=== PATIENT | female | born 1990 | race Caucasian/White ===

== ENCOUNTER 2017-08-26 09:50 | Emergency (ER) | payer MEDICARE, MEDICAID ==
[2017-08-26 10:00] VITALS: BP 143/101
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
[2017-08-26] MEDS ORDERED: Bacitracin Oint 1 GM U/D Packet TOP ONE (14:31)
== END 2017-08-26 15:25 ==
LOC: JP.ED 09:50
DX: T14.91XA Suicide attempt, initial encounter (principal); F32.9 Major depressive disorder, single episode, unspecified; F41.9 Anxiety disorder, unspecified; F98.8 Other specified behavioral and emotional disorders with onset usually occurring in childhood and adolescence; Z79.899 Other long term (current) drug therapy; X83.8XXA Intentional self-harm by other specified means, initial encounter
CPT/HCPCS: 36415; 80053; 80305; 81001; 81025; 84443; 85025; 99285; G0480

== ENCOUNTER 2019-05-01 15:52 | Emergency (ER) | payer MEDICARE, MEDICAID ==
[2019-05-01] MEDS ORDERED: Albuterol 0.083% 2.5 MG/3 ML Neb Soln NEB ONE (17:06)
[2019-05-01] MEDS ORDERED: LORazepam 1 MG Tab PO ONE (17:06)
--- NOTE | 2019-05-01 17:08 | EDM.PDOCBH ---
ED HPI GENERAL MEDICAL PROBLEM - General Chief Complaint: Behavioral/Psych Stated Complaint: CHEST PAIN Time Seen by Provider: 05/01/19 16:56 Source of Information: Reports: Patient, Family, RN Notes Reviewed History Limitations: Reports: No Limitations - History of Present Illness INITIAL COMMENTS - FREE TEXT/NARRATIVE: 28-year-old female presents emergency department with a complaint of cannot breathe difficulty swallowing. She was evaluated in urgent care yesterday rapid strep and influenza were both negative she states approximately 1 hour prior developed difficulties where she could not breathe could not talk came into the emergency department for further evaluation Throat Pain Score (Numeric/FACES): 8 - Related Data Allergies Allergy/AdvReac Type Severity Reaction Status Date / Time No Known Allergies Allergy Verified 05/01/19 16:07 Home Meds: Home Meds Docusate Sodium [Colace] 200 mg PO QAM 08/19/15 [History] L.acidoph,Paracasei, B.lactis [Probiotic] 1 each PO QAM 08/19/15 [History] QUEtiapine [SEROquel] 50 mg PO BID 08/19/15 [History] Sertraline HCl 150 mg PO DAILY 08/19/15 [History] atoMOXetine HCl [Strattera] 40 mg PO QAM 08/19/15 [History] hydrOXYzine HCL [Atarax] 50 mg PO BID 08/19/15 [History] traZODone 100 mg PO BEDTIME 08/19/15 [History] *A Control Shot 1 injection IM ASDIRECTED 11/02/15 [History] Vitamin B Complex [B Complex] 1 tab PO DAILY 01/06/16 [History] ALPRAZolam [Xanax] 0.25 mg PO QID PRN 08/26/17 [History] Hyoscyamine Sulfate [Levsin-Sl] 0.125 mg SL Q4HR PRN 08/26/17 [History] raNITIdine HCl [Ranitidine HCl] 150 mg PO BID 08/26/17 [History] LORazepam [Ativan] 1 mg PO Q8H PRN #10 tab 05/01/19 [Rx] Past Medical History Cardiovascular History: Reports: Heart Failure Respiratory History: Reports: Asthma 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 History: Reports: Chronic Constipation 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: Musculoskeletal History: Reports: Back Pain, Chronic, Fracture, Osteoarthritis, Osteoporosis Neurological History: Reports: Headaches, Chronic, Head Trauma, Seizure Psychiatric History: Reports: ADD, Anxiety, Depression, Psych Hospitalization(s) , Suicide Attempt, Suicidal Ideation, Other (See Below) Other Psychiatric History: ELLY Hematologic History: Reports: Blood Transfusion(s), Other (See Below) 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 - Past Surgical History Female Surgical History: Reports: Hysterectomy Musculoskeletal Surgical History: Reports: Other (See Below) Social & Family History - Tobacco Use Smoking Status *Q: Never Smoker Second Hand Smoke Exposure: No - Caffeine Use Caffeine Use: Reports: None - Recreational Drug Use Recreational Drug Use: Yes ED ROS GENERAL - Review of Systems Review Of Systems: See Below Constitutional: Reports: No Symptoms HEENT: Reports: Throat Pain, Throat Swelling Respiratory: Reports: Shortness of Breath, Cough Cardiovascular: Reports: No Symptoms GI/Abdominal: Reports: No Symptoms ED EXAM, BEHAVIORAL HEALTH - Physical Exam Exam: See Below Exam Limited By: No Limitations General Appearance: Alert, WD/WN, No Apparent Distress Ears: Normal External Exam, Normal Canal, Hearing Grossly Normal, Normal TMs Nose: Normal Inspection, Normal Mucosa, No Blood Throat/Mouth: Normal Inspection, Normal Lips, Normal Teeth, Normal Gums, No Airway Compromise, Inflammation, Other (No edema noted in the posterior pharynx she has difficulty speaking due to pain) Head: Atraumatic, Normocephalic Neck: Normal Inspection, Supple, Non-Tender, Full Range of Motion Respiratory/Chest: No Respiratory Distress, Lungs Clear, Normal Breath Sounds, No Accessory Muscle Use, Chest Non-Tender Cardiovascular: Regular Rate, Rhythm, No Murmur COURSE, BEHAVIORAL HEALTH COMP - Course Vital Signs: Last Vital Signs Temp 97.3 F 05/01/19 16:32 Pulse 131 H 05/01/19 17:36 Resp 24 H 05/01/19 16:32 BP 149/86 H 05/01/19 17:36 Pulse Ox 98 05/01/19 17:36 Orders, Labs, Meds: Active Orders 24 hr Category Date Time Status RT Aerosol Therapy [RC] ASDIRECTED Care 05/01/19 17:06 Active Medications Discontinued Medications Generic Name Dose Route Start Last Admin Trade Name Freq PRN Reason Stop Dose Admin Albuterol 2.5 mg 05/01/19 17:06 05/01/19 17:12 Proventil Neb Soln NEB 05/01/19 17:07 2.5 mg ONETIME ONE Administration Dexamethasone 8 mg 05/01/19 17:55 Dexamethasone PO 05/01/19 17:56 ONETIME ONE Lorazepam 1 mg 05/01/19 17:06 05/01/19 17:12 Ativan PO 05/01/19 17:07 1 mg ONETIME ONE Administration Departure - Departure Time of Disposition: 17:58 Disposition: Home, Self-Care 01 Condition: Fair Clinical Impression: Panic attack - Discharge Information Prescriptions: LORazepam [Ativan] 1 mg PO Q8H PRN #10 tab PRN Reason: Anxiety Instructions: Panic Attack Referrals: PCP,None [Primary Care Provider] - Forms: ED Department Discharge Additional Instructions: Use the Ativan as needed with the difficulty breathing, please followup with your primary care provider in 3-5 days if not better, please call return to the emergency department with worsening of symptoms. Your medications have been faxed to [facility] Sepsis Event Note - Evaluation Sepsis Screening Result: No Definite Risk - Focused Exam Vital Signs: Vital Signs Temp Pulse Resp BP Pulse Ox 05/01/19 17:36 131 H 149/86 H 98 05/01/19 16:56 102 H 120/78 98 05/01/19 16:39 110 H 119/77 99 05/01/19 16:32 97.3 F 122 H 24 H 134/77 96 05/01/19 15:59 97.3 F 122 H 24 H 134/77 96 Date Exam was Performed: 05/01/19 Time Exam was Performed: 17:57 - My Orders Last 24 Hours: My Active Orders 05/01/19 17:06 RT Aerosol Therapy [RC] ASDIRECTED - Assessment/Plan Last 24 Hours: My Active Orders 05/01/19 17:06 RT Aerosol Therapy [RC] ASDIRECTED Plan: Assessment Acuity = acute Site and laterality = panic attack Etiology = underlying generalized anxiety disorder Manifestations = none Location of injury = Home Lab values = none Plan Good improvement with Ativan provided in the emergency department, I am suspicious she has underlying laryngitis which may have contributed to throat pain which then may have contributed to not being able to breathe and led to the panic attack. She was given dexamethasone elixir one-time dose prescription written for Ativan 1 mg p.o. every 8 hours PRN total #10 faxed to [facility] follow-up primary care 3 to 5 days if not better This note was dictated using [employer] voice recognition software please call with any questions on syntax or grammar.
[2019-05-01 17:37] VITALS: BP 149/86; PULSE 131
[2019-05-01] MEDS ORDERED: Dexamethasone 4 MG/ML SDV PO ONE (17:55)
== END 2019-05-01 18:11 | disposition home or self-care (01) ==
LOC: JP.ED 15:52
DX: F41.0 Panic disorder [episodic paroxysmal anxiety] (principal); I50.9 Heart failure, unspecified; J45.909 Unspecified asthma, uncomplicated; F32.9 Major depressive disorder, single episode, unspecified; F41.9 Anxiety disorder, unspecified; Z79.899 Other long term (current) drug therapy
CPT/HCPCS: 94640; 99284; A9270; J1100